=== PATIENT | female | born 1990 | race Two or more races ===

== ENCOUNTER 2018-05-14 14:56 | Emergency (ER) | payer SELFPAY ==
[~2018-05-14] VITALS: Ht 157.5 cm; Wt 63.5 kg
[2018-05-14 16:15] VITALS: BP 116/64
[2018-05-14] MEDS ORDERED: PENI500T PO (16:34)
[2018-05-14] MEDS ORDERED: NAPR-514 PO (16:34)
--- NOTE | 2018-05-14 16:34 | PHYS DOC ---
Past Medical History Past Medical History: No Pertinent History Past Surgical History: No Surgical History Alcohol Use: None Drug Use: None Adult General Chief Complaint Chief Complaint: DENTAL PROBLEM HPI HPI Patient is a 27 year old female who presents to the ER with complaints of LLQ dental pain x3 days. She denies any fever, difficulty swallowing or breathing, or injury. She reports a broken tooth in the same area. Currently she rates her pain an 8 out of 10 on the pain scale. She has been taking 400 mg of ibuprofen every 6 hours for pain. Review of Systems Review of Systems Constitutional: Denies fever or chills [] HENT: Denies nasal congestion or sore throat Respiratory: Denies cough or shortness of breath [] Integument: Denies rash or skin lesions [] Neurologic: Denies headache, focal weakness or sensory changes [] All other systems were reviewed and found to be within normal limits, except as documented in this note. Physical Exam Physical Exam Constitutional: Well developed, well nourished, no acute distress, non-toxic appearance. [] HENT: Normocephalic, atraumatic, bilateral external ears normal, bilateral TMs normal, oropharynx moist, no oral exudates, nose normal; tooth #19 is broken with moderate facial swelling to the area, no visible dental abscess. [] Eyes: PERRLA, conjunctiva normal, no discharge. [] Neck: Normal range of motion, no tenderness, supple, no stridor. [] Cardiovascular:Heart rate regular rhythm, no murmur [] Lungs & Thorax: Bilateral breath sounds clear to auscultation [] Skin: Warm, dry, no erythema, no rash. [] Extremities: No cyanosis, ROM intact, no edema. [] Neurologic: Alert and oriented X 3, normal motor function, normal sensory function, no focal deficits noted. [] Psychologic: Affect normal, judgement normal, mood normal. [] Current Patient Data Vital Signs Vital Signs Date Time Temp Pulse Resp B/P (MAP) Pulse Ox O2 Delivery O2 Flow Rate FiO2 05/14/18 16:15 98.2 85 18 116/64 (81) 98 Room Air 98.2 EKG EKG [] Radiology/Procedures Radiology/Procedures [] Course & Med Decision Making Course & Med Decision Making Pertinent Labs and Imaging studies reviewed. (See chart for details) Dx: dentalgia, infected dental caries No signs of dental abscess, Rx written for penicillin VK and naproxen. Advised pt to stop taking ibuprofen if taking naproxen. Follow up with your dentist next week. Return to the ER if symptoms worsen. [] Joseph Disclaimer Fabiolaon Disclaimer This electronic medical record was generated, in whole or in part, using a voice recognition dictation system. Departure Departure Impression: Primary Impression: Pain, dental Additional Impression: Infected dental carries Disposition: HOME, SELF-CARE Condition: STABLE Referrals: NO PCP (PCP) Patient Instructions: Dental Pain, [id number] Additional Instructions: Fill prescriptions and use them as directed. Stop taking ibuprofen while you are taking naproxen, you may also take Tylenol for relief of your pain. Follow- up with your dentist next week. Return to the emergency room if your symptoms worsen. Scripts Naproxen (NAPROXEN) 500 Mg Tablet 1 TAB PO BID PRN for PAIN for 10 Days, #20 TAB 0 Refills Prov: LEX RIVERA APRN 05/14/18 Penicillin V Potassium (PENICILLIN V POTASSIUM) 500 Mg Tablet 1 TAB PO QID, #40 TAB Prov: LEX RIVERA APRN 05/14/18 Attending Signature Attending Signature I have reviewed the PA/WATER REGULATOR AND VALVE REPAIRER's note and plan of care. I was available for consultation as needed during the patient's visit in the emergency department. I agree with the clinical impression, plan, and disposition. Problem Qualifiers LEX IRVERA APRN May 14, 2018 16:34 FADUMO MENCHACA DO May 16, 2018 12:12
== END 2018-05-14 16:56 | disposition home or self-care (01) ==
LOC: ER 14:56
DX: S02.5XXA Fracture of tooth (traumatic), initial encounter for closed fracture (principal); K02.9 Dental caries, unspecified; X58.XXXA Exposure to other specified factors, initial encounter; Y93.89 Activity, other specified; Y92.89 Other specified places as the place of occurrence of the external cause; Y99.8 Other external cause status
CPT/HCPCS: 99283